=== PATIENT | male | born 1990 | race Caucasian/White ===

== ENCOUNTER 2018-12-14 20:19 | Emergency (ER) | payer OTHER ==
[~2018-12-14] VITALS: Ht 198.1 cm; Wt 99.8 kg
[~2018-12-14 20:19] MED LIST: HYDACE5 PO
[2018-12-14 21:11] LABS: BASOPHILS ABSOLUTE AUTO 0.03 K/mm3 (0.00-0.23); BASOPHILS PERCENT AUTO 1 % (0-2); EOSINOPHILS ABSOLUTE AUTO 0.07 K/mm3 (0.00-0.68); EOSINOPHILS PERCENT AUTO 2 % (0-6); Hematocrit 43.9 % (37.0-53.0); Hemoglobin 14.8 g/dL (13.5-17.5); IMMATURE GRAN ABSOLUTE AUTO 0.01 K/mm3 (0.00-0.10); IMMATURE GRAN PERCENT AUTO 0 % (0-1); LYMPHOCYTES ABSOLUTE AUTO 1.77 K/mm3 (0.84-5.20); LYMPHOCYTES PERCENT AUTO 40 % (21-46); MONOCYTES ABSOLUTE AUTO 0.44 K/mm3 (0.16-1.47); MONOCYTES PERCENT AUTO 10 % (4-13); Mean Corpuscular HGB 29.2 pg (26.0-34.0); Mean Corpuscular HGB Conc 33.7 g/dL (31.5-36.5); Mean Corpuscular Volume 87 fL (80-100); Mean Platelet Volume 10.7 fL (9.1-12.4); NEUTROPHILS ABSOLUTE AUTO 2.13 K/mm3 (1.96-9.15); NEUTROPHILS PERCENT AUTO 48 % (41-73); Platelet Count 187 K/mm3 (150-400); RDW Coefficient Variation 11.9 % (11.7-14.2); RDW Standard Deviation 37.6 fL (35.1-46.3); Red Blood Cell Count 5.06 M/mm3 (4.30-5.90); White Blood Cell Count 4.45 K/mm3 (4.00-11.30)
[2018-12-14 21:28] LABS: Alanine Aminotransfer (ALT/SGP 25 U/L (12-78); Albumin, Blood 4.2 g/dL (3.4-5.0); Albumin/Globulin Ratio 1.6 (0.8-1.8); Alk Phos 64 U/L (50-136); Anion Gap 6 mmol/L (6-16); Aspartate Aminotrans (AST/SGOT 11 U/L (12-37); Bilirubin, Total 0.4 mg/dL (0.1-1.0); Blood Urea Nitrogen 22 mg/dL (8-24); Bun/Creatinine Ratio 28.2 (12.0-20.0); CO2, Blood 31 mmol/L (21-32); Calcium, Blood 8.7 mg/dL (8.5-10.1); Chloride, Blood 106 mmol/L (98-108); Creatinine, Blood 0.78 mg/dL (0.60-1.20); Globulin, Blood 2.7 g/dL (2.2-4.0); Glomerular Filtration Rate >60 (60-); Glucose, Blood 84 mg/dL (70-99); Potassium, Blood 3.7 mmol/L (3.5-5.5); Sodium, Blood 143 mmol/L (136-145); Total Protein, Blood 6.9 g/dL (6.4-8.2)
== END 2018-12-14 22:53 | disposition home or self-care (01) ==
LOC: ER 20:19
PROVIDERS: Physician Assistant
DX: R07.9 Chest pain, unspecified (principal); Z87.891 Personal history of nicotine dependence
CPT/HCPCS: 36415; 71046; 80053; 83880; 84484; 85025; 85379; 93005; 93010; 99284-25

== ENCOUNTER → 2019-08-24 | Outpatient (CLI) | payer BC, OTHER | LOC: LAB EV 08:30 → LAB SHORT 08:30 | DX: B35.4 Tinea corporis (principal) | CPT/HCPCS: 87070; 87205 ==

== ENCOUNTER 2020-06-21 13:21 | Emergency (ER) | payer OTHER ==
[~2020-06-21] VITALS: Ht 193 cm; Wt 117.9 kg
[2020-06-21] MEDS ORDERED: IBUP800 PO (14:50)
[2020-06-21] MEDS ORDERED: CEPH500 PO (14:50)
[2020-06-21] MEDS ORDERED: Norco 5-325 Ta1 EACH PO (14:50)
== END 2020-06-21 15:25 | disposition home or self-care (01) ==
LOC: ER 13:21
DX: S61.541A Puncture wound with foreign body of right wrist, initial encounter (principal); Z23 Encounter for immunization; Z87.891 Personal history of nicotine dependence; W45.0XXA Nail entering through skin, initial encounter
CPT/HCPCS: 29125; 36415; 73100; 90471; 90714; 96365-59; 96375-59; 99283-25; J0690; J1885; J2270; J2405